=== PATIENT | male | born 2000 | race Caucasian/White ===

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

== ENCOUNTER → 2021-03-24 07:47 | Outpatient (BNVA) | payer OTHER, SELFPAY | PROVIDERS: Family Provider Family Medicine; Visit Provider Nurse Practitioner | DX: F90.2 Attention-deficit hyperactivity disorder, combined type (principal); F34.1 Dysthymic disorder | CPT/HCPCS: 99213 ==

== ENCOUNTER → 2021-04-21 07:31 | Outpatient (BNVA) | payer OTHER, SELFPAY | PROVIDERS: Family Provider Family Medicine; Visit Provider Nurse Practitioner | DX: F90.2 Attention-deficit hyperactivity disorder, combined type (principal); F34.1 Dysthymic disorder | CPT/HCPCS: 99214 ==

== ENCOUNTER → 2022-11-20 14:06 | Outpatient (BNVA) | payer OTHER, MEDICAID, SELFPAY | PROVIDERS: Family Provider Family Medicine; Visit Provider Nurse Practitioner Family | DX: R55 Syncope and collapse (principal) | CPT/HCPCS: 93005 ==

== ENCOUNTER → 2022-11-20 15:53 | Outpatient (BNVA) | payer OTHER, MEDICAID, SELFPAY | PROVIDERS: Family Provider Family Medicine; Visit Provider Nurse Practitioner Family | DX: R55 Syncope and collapse (principal); J35.1 Hypertrophy of tonsils; R42 Dizziness and giddiness | CPT/HCPCS: 80053; 85025; 87071; 87880 ==

== ENCOUNTER → 2022-12-31 10:30 | Outpatient (BNVA) | payer OTHER, MEDICAID, SELFPAY | PROVIDERS: Family Provider Family Medicine; Visit Provider Family Medicine | DX: R53.83 Other fatigue (principal); K58.9 Irritable bowel syndrome, unspecified | CPT/HCPCS: 82607; 82652; 84439; 84443; 84481; 85651; 86038; 86140 ==

== ENCOUNTER → 2023-03-29 17:01 | Outpatient (BNVA) | payer OTHER, MEDICAID, SELFPAY | PROVIDERS: Family Provider Family Medicine; Visit Provider Nurse Practitioner Family | DX: R07.81 Pleurodynia (principal); R07.9 Chest pain, unspecified; R05.9 Cough, unspecified | CPT/HCPCS: 71046 ==

== ENCOUNTER 2023-09-08 20:49 | Inpatient (IN) | payer OTHER, MEDICAID, SELFPAY ==
[2023-09-08 20:50] VITALS: BP 137/80; PULSE 74; RESP 16; TEMP 36.7; O2SAT 97; BMI 31.8
--- NOTE | 2023-09-08 21:00 | PC.NURSE ---
96 Hour Involuntary Hold Patient Rights have been read to patient and a copy of the same has been given to him. Systems Software Engineer Eduarda Lopze was present at bedside at the time of presentation.
--- NOTE | 2023-09-08 21:10 | ECG_ITS ---
[facility] Test Date: 2023-09-09 Pat Name: Robert Braswell Department: Room: ED Gender: Male Publishing Editor: : 2000 Requested By: Kristine Khanna Order Number: [id number] Archana MD: Brijesh Chavez M.D. Measurements Intervals [place] Rate: 65 P: 50 NV: 136 QRS: 51 QRSD: 107 T: 60 QT: 389 QTc: 404 Interpretive Statements SINUS RHYTHM Compared to ECG 06/04/2019 20:58:46 Sinus arrhythmia no longer present Electronically Signed On 09-09-2023 16:03:45 ICT PROJECT MANAGER by Brijesh Chavez M.D. [id number]
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
[2023-09-08 21:20] LABS: Amphetamines Screen Urine Negative (Negative); Barbiturates Screen Urine Negative (Negative); Benzodiazepines Screen Urine Negative (Negative); Cocaine Screen Urine Negative (Negative); Opiate Screen Urine Negative (Negative); PCP Screen Urine Negative (Negative); THC Screen Urine Positive (Negative)
[2023-09-08 21:46] LABS: Basophils # 0.1 10^3/uL (0.0-0.1); Basophils % 0.7 %; Eosinophils # 0.2 10^3/uL (0.0-0.8); Hematocrit 44.4 % (37-53); Lymphocytes # 2.9 10^3/uL (0.8-4.8); Lymphocytes % 27.2 %; Mean Corpuscular HGB Conc 34.7 g/dL (30-55); Mean Corpuscular Hemoglobin 29.3 pg (27-33); Mean Corpuscular Volume 84.6 fl (82-101); Mean Platelet Volume 9.8 fL (7.4-10.4); Monocytes # 0.8 10^3/uL (0.2-0.9); Monocytes % 7.4 %; Neutrophils # 6.59 10^3/uL (1.8-7.7); Neutrophils % 62.4 %; Nucleated Red Blood Cells % 0 %; Platelet Count 279 10^3/cmm (157-399); Red Blood Count 5.25 10^6/uL (3.85-5.65); Red Cell Distribution Width 12.4 % (12.1-15.1); White Blood Count 10.55 10^3/uL (3.29-11.43)
[2023-09-08 22:04] LABS: Alanine Aminotransferase 14 U/L (0-41); Albumin Level 4.6 g/dL (3.5-5.2); Alkaline Phosphatase 87 U/L (40-130); Anion Gap 15.9 (5-19); Aspartate Amino Transferase 16 U/L (0-40); Blood Urea Nitrogen 11 mg/dL (6-20); Calcium 9.8 mg/dL (8.5-10.5); Carbon Dioxide 25 mmol/L (22-29); Chloride 103 mmol/L (98-107); Globulin 3.5 g/dL (1.3-4.6); Glomerular Filtration Rate 105.5 mL/min (90-130); Glucose 91 mg/dL (65-115); Osmolality Calculated 289 mOsm/kg (285-295); Potassium 3.9 mmol/L (3.5-5.1); Sodium 140 mmol/L (136-145); Total Bilirubin 0.5 mg/dL (0.15-1.2); Total Protein 8.1 g/dL (6.6-8.7)
[2023-09-08 22:05] LABS: Acetaminophen < 5.0 ug/mL (10-30); Alcohol Level < 10 mg/dL (0-10); Salicylate < 0.3 mg/dL (3-10)
[2023-09-08 22:41] LABS: Influenza A by IFA negative (Negative); Influenza B by IFA negative (Negative); SARS Covid-2 Antigen negative (Negative)
[2023-09-09 01:03] LABS: RSV Transfer Patient (ED) Negative (Negative)
[2023-09-09 04:00] VITALS: RESP 18
[2023-09-09 06:00] VITALS: BP 105/48; PULSE 64; RESP 16; O2SAT 98
--- NOTE | 2023-09-09 06:54 | PC.NURSE ---
THIS NURSE ASSUMED CARE AT 0655. PATIENT RESTING IN BED, BREATHING EVEN AND UNLABORED.
[2023-09-09 10:34] VITALS: BP 111/69; PULSE 76; RESP 16; O2SAT 97
[2023-09-09 14:00] VITALS: BP 133/89; PULSE 75; RESP 16; TEMP 36.7; O2SAT 98
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
[2023-09-09] MEDS: trazodone 50 mg Tablet PO (19:57)
[2023-09-09 20:38] VITALS: BP 124/81; PULSE 81; RESP 18; TEMP 36.8; O2SAT 99
[2023-09-10] MEDS: acetaminophen 325 mg Tablet 650 MG PO ×2 (03:17→15:51)
[2023-09-10 06:00] VITALS: BP 108/64; PULSE 51; RESP 16; O2SAT 97
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
[2023-09-10] MEDS: buPROPion XL (24 HR) 150 mg Tablet PO (08:44)
[2023-09-10] MEDS: nicotine 21 mg Patch 1 PATCH TRANSDERMA (09:01)
[2023-09-10 14:00] VITALS: BP 126/78; PULSE 128; RESP 16; TEMP 36.6; O2SAT 97
[2023-09-10] MEDS: nicotine 2 mg Gum BUCCAL (16:21)
[2023-09-10] MEDS: ARIPiprazole 10 mg Tablet 5 MG PO (18:19)
[2023-09-10] MEDS: docusate sodium 100 mg Capsule PO (18:20)
[2023-09-10] MEDS: OLANZapine 5 mg ODT PO (19:19)
[2023-09-10 20:36] VITALS: BP 132/80; PULSE 90; RESP 18; TEMP 36.4; O2SAT 98
[2023-09-11 06:00] VITALS: BP 110/73; PULSE 74; RESP 16; TEMP 36.7; O2SAT 96
[2023-09-11] MEDS: ARIPiprazole 10 mg Tablet 5 MG PO (08:12)
[2023-09-11] MEDS: nicotine 2 mg Gum BUCCAL ×2 (08:12→15:04)
[2023-09-11] MEDS: buPROPion XL (24 HR) 150 mg Tablet 300 MG PO (08:12)
--- NOTE | 2023-09-11 08:48 | P.NPUPN_ITS ---
Subjective NPU 2 Subjective: Patient presented today reporting that he feels decent. He reported that he feels like the medication has been helpful both the increase in his Wellbutrin XL and the addition of Abilify. He reports that he feels like he is able to be less reactive to his emotions. He denied any side effects to the medications or problems with these changes. Mental Status Exam 2 MSE Comments: This is an obese white male in hospital scrubs with adequate grooming and eye contact. No abnormal movements except for mild psychomotor retardation. Cooperative with exam in mild distress. Speech was slightly decreased rate normal volume. Mood described as depressed, affect congruent. Thought process organized. Thought content: Patient denied suicidal or homicidal ideation, he endorsed paranoia and seems slightly guarded, he denied visual but endorsed possible auditory hallucinations. Attention and concentration were intact and memory was mostly reliable but none were formally tested. He is alert and oriented x 3. Insight and judgment were fair and impulse control is limited. Vitals/I&O/Wt Last Vital Signs Temp 98.1 F 09/11/23 06:00 Pulse 74 09/11/23 06:00 Resp 16 09/11/23 06:00 BP 110/73 09/11/23 06:00 Pulse Ox 96 09/11/23 06:00 O2 Del Method Room Air 09/11/23 06:00 Data NPU 09/08/23 21:10 09/08/23 21:10 A&P Assessment and plan (1) History of attention deficit hyperactivity disorder (ADHD): (2) Major depressive disorder, recurrent, moderate: (3) Borderline personality disorder: (4) Cannabis abuse: (5) Suicidal ideation: (6) Dysthymic disorder: Plan This is a 23-year-old white male who presents with severe depression, emotional dysregulation, and suicidal ideation. History of multiple psychiatric hospitalizations and therapy. Struggles with self-worth and control over emotions. Significant weight loss due to depression. Experiences paranoia and visual hallucinations. Family history of mental health issues and addiction. PLAN 1. Continue current medication and started Abilify 5mg daily for mood stabilization and better control of anger. 2. Continue Q 15 minute checks for safety. 3. Encourage involvement in individual, group, and milieu therapies. 4. Gather collateral information for better understanding of situation Involuntary Hold Information 2 96 Hour Hold: 96 Hour Involuntary Admission: Yes 96 Hour Hold Ending Date: 09/14/23 96 Hour Hold Ending Time: 20:49 Attestations NPU 2 Medical Necessity Statement*: Inpatient hospitalization is medically necessary and the clinically appropriate intervention at this time. We will monitor/initiate medications and make changes as indicated. Likely length of stay 2-4 days. Coding Level of Care Code Acute Code for Chg Fwd Diagnoses History of attention deficit hyperactivity disorder (ADHD) Z86.59 Major depressive disorder, recurrent, moderate F33.1 Borderline personality disorder F60.3 Cannabis abuse F12.10 Suicidal ideation R45.851 Dysthymic disorder F34.1
--- NOTE | 2023-09-11 11:04 | PC.NURSE ---
Patient states he is here for help with his anger control. States he has noticed over the past few months that he gets easily angered. States that he realizes that his reaction to his bother was excessive. States he is feeling better and more in control of his emotions. States he continues to have paranoid thoughts (like everyone is talking about me, or when i hear people laughing, i assume they are laughing at me).
[2023-09-11 14:00] VITALS: BP 102/68; PULSE 88; RESP 16; TEMP 36.6; O2SAT 98
[2023-09-11] MEDS: hyDROXYzine 25 mg Capsule 50 MG PO (15:04)
[2023-09-11 20:05] VITALS: BP 105/69; PULSE 104; RESP 18; TEMP 36.6; O2SAT 97
[2023-09-12 06:00] VITALS: BP 116/74; PULSE 68; RESP 16; TEMP 36.6; O2SAT 96; BMI 32.0
[2023-09-12] MEDS: ARIPiprazole 10 mg Tablet 5 MG PO (08:51)
[2023-09-12] MEDS: buPROPion XL (24 HR) 150 mg Tablet 300 MG PO (08:51)
--- NOTE | 2023-09-12 09:09 | P.NPUPN_ITS ---
Subjective NPU 2 Subjective: Patient presented today reporting that he feels the medication has been very helpful. The increase in his Wellbutrin XL and the addition of Abilify he reports is really helped with his ability to manage his emotions and he is feeling more stable. We discussed the social work team being here tomorrow and that we could work on identifying his appropriate aftercare appointments. He denied any side effects of the medication and we discussed the possibility of discharge soon. Mental Status Exam 2 MSE Comments: This is an obese white male in hospital scrubs with adequate grooming and eye contact. No abnormal movements except for mild psychomotor retardation. Cooperative with exam in mild distress. Speech was slightly decreased rate normal volume. Mood described as feeling better, affect congruent. Thought process organized. Thought content: Patient denied suicidal or homicidal ideation, he endorsed resolving paranoia and did not appear guarded today, he denied auditory or visual hallucinations. Attention and concentration were intact and memory was mostly reliable but none were formally tested. He is alert and oriented x 3. Insight and judgment were fair and impulse control is limited. Vitals/I&O/Wt Last Vital Signs Temp 97.8 F 09/12/23 06:00 Pulse 68 09/12/23 06:00 Resp 16 09/12/23 06:00 BP 116/74 09/12/23 06:00 Pulse Ox 96 09/12/23 06:00 O2 Del Method Room Air 09/12/23 06:00 Weight last 48 hrs Weight 90.083 kg Data NPU 09/08/23 21:10 09/08/23 21:10 A&P Assessment and plan (1) History of attention deficit hyperactivity disorder (ADHD): (2) Major depressive disorder, recurrent, moderate: (3) Borderline personality disorder: (4) Cannabis abuse: (5) Suicidal ideation: (6) Dysthymic disorder: Plan This is a 23-year-old white male who presents with severe depression, emotional dysregulation, and suicidal ideation. History of multiple psychiatric hospitalizations and therapy. Struggles with self-worth and control over emotions. Significant weight loss due to depression. Experiences paranoia and visual hallucinations. Family history of mental health issues and addiction. PLAN 1. Continue current medication and started Abilify 5mg daily for mood stabilization and better control of anger. 2. Continue Q 15 minute checks for safety. 3. Encourage involvement in individual, group, and milieu therapies. 4. Gather collateral information for better understanding of situation Involuntary Hold Information 2 96 Hour Hold: 96 Hour Involuntary Admission: Yes 96 Hour Hold Ending Date: 09/14/23 96 Hour Hold Ending Time: 20:49 Attestations NPU 2 Medical Necessity Statement*: Inpatient hospitalization is medically necessary and the clinically appropriate intervention at this time. We will monitor/initiate medications and make changes as indicated. Likely length of stay 1-3 days. Coding Level of Care Code Acute Code for g Fwd Diagnoses History of attention deficit hyperactivity disorder (ADHD) Z86.59 Major depressive disorder, recurrent, moderate F33.1 Borderline personality disorder F60.3 Cannabis abuse F12.10 Suicidal ideation R45.851 Dysthymic disorder F34.1
[2023-09-12 14:00] VITALS: BP 117/71; PULSE 82; RESP 16; TEMP 36.9; O2SAT 96
[2023-09-12] MEDS: nicotine 2 mg Gum BUCCAL (14:09)
[2023-09-12 19:58] VITALS: BP 143/83; PULSE 114; RESP 20; TEMP 36.8; O2SAT 95
[2023-09-12] MEDS: trazodone 50 mg Tablet PO (20:02)
[2023-09-13 06:00] VITALS: BP 125/80; PULSE 96; RESP 16; TEMP 36.6; O2SAT 98
[2023-09-13] MEDS: nicotine 2 mg Gum BUCCAL ×2 (06:05→08:27)
[2023-09-13] MEDS: ARIPiprazole 10 mg Tablet 5 MG PO (08:23)
[2023-09-13] MEDS: buPROPion XL (24 HR) 150 mg Tablet 300 MG PO (08:24)
[2023-09-13] MEDS: docusate sodium 100 mg Capsule PO (11:47)
[2023-09-13] MEDS: dicyclomine 10 mg Capsule 20 MG PO (11:47)
[2023-09-13 13:24] VITALS: BP 127/72; PULSE 114; RESP 13; TEMP 36.8; O2SAT 96
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
[2023-09-13 13:59] VITALS: BP 127/72; PULSE 114; RESP 13; TEMP 36.8; O2SAT 96
== END 2023-09-13 15:53 | disposition home or self-care (01) | DRG 885 ==
LOC: ER 21:23 → ER IP 23:28 → NP 09-09 15:16
PROVIDERS: Admitting Provider Psychiatry & Neurology Psychiatry; Emergency Provider Emergency Medicine; Visit Provider Psychiatry & Neurology Psychiatry
DX: F33.1 Major depressive disorder, recurrent, moderate (principal); R45.851 Suicidal ideations; F17.210 Nicotine dependence, cigarettes, uncomplicated; K58.9 Irritable bowel syndrome, unspecified; K21.9 Gastro-esophageal reflux disease without esophagitis; F12.10 Cannabis abuse, uncomplicated; F90.2 Attention-deficit hyperactivity disorder, combined type; F34.1 Dysthymic disorder; Z81.3 Family history of other psychoactive substance abuse and dependence; Z81.1 Family history of alcohol abuse and dependence; Z81.8 Family history of other mental and behavioral disorders
CPT/HCPCS: 36415; 80053; 80306; 80307; 85025; 87426; 87804; 87899; 93005; 97110; 97150; 97161; 97165; 99285

== ENCOUNTER → 2023-09-23 11:26 | Outpatient (BNVA) | payer OTHER, MEDICAID, SELFPAY | PROVIDERS: Visit Provider Nurse Practitioner | DX: M25.50 Pain in unspecified joint (principal); R53.83 Other fatigue; K58.9 Irritable bowel syndrome, unspecified | CPT/HCPCS: 80053; 84443; 85025; 85651; 86038; 86140; 86431 ==

== ENCOUNTER → 2024-02-08 16:15 | Outpatient (BNVA) | payer SELFPAY | PROVIDERS: PCP Nurse Practitioner; Visit Provider Family Medicine | DX: M25.532 Pain in left wrist (principal); M25.531 Pain in right wrist; M25.562 Pain in left knee; M25.561 Pain in right knee | CPT/HCPCS: 73110; 73562; 86140 ==

== ENCOUNTER 2025-02-16 09:33 | Outpatient (CLI) | payer OTHER, SELFPAY ==
--- NOTE | 2025-02-16 09:40 | XR_ITS ---
WS: [email or web address] Exam: XR thoracic spine 3V* [id number] Date/Time of Exam: 02/16/2025 9:41 AM Reason For Exam: LUMBAGO WITH SCIATICA No fracture or malalignment. Disc spaces are preserved. No scoliosis. Normal paraspinal soft tissues. XR/XR thoracic spine 3V* [id number] IMPRESSION: 1. Negative T-spine study.
--- NOTE | 2025-02-16 09:41 | XR_ITS ---
WS: [email or web address] Exam: XR lumbar spine 2-3V* [id number] Date/Time of Exam: 02/16/2025 9:41 AM Reason For Exam: LUMBAGO WITH SCIATICA No fracture or malalignment. Disc spaces are preserved. Posterior elements are intact. XR/XR lumbar spine 2-3V* [id number] IMPRESSION: 1. Normal lumbar spine study.
== END 2025-02-16 09:34 | disposition home or self-care (01) ==
LOC: RAD 09:35
PROVIDERS: PCP Nurse Practitioner
DX: M54.40 Lumbago with sciatica, unspecified side (principal)
CPT/HCPCS: 72072; 72100